=== PATIENT | female | born 1990 | race American Indian/Alaskan Native ===

== ENCOUNTER 2018-12-13 16:29 | Emergency (ER) | payer SELFPAY ==
[2018-12-13 17:01] VITALS: BP 93/65
--- NOTE | 2018-12-13 17:02 | Event Note ---
ED Screening Note Date of service: 12/13/18 Time: 16:59 ED Screening Note: This is a 28 y.o. F. that presents to the ER with diarrhea, fatigue, headache, and abdominal pain x 3 days. Current smoker LMP 12/05/2018 This initial assessment/diagnostic orders/clinical plan/treatment(s) is/are sub ject to change based on patients health status, clinical progression and re- assessment by fellow clinical providers in the ED. Further treatment and workup at subsequent clinical providers discretion. Patient/guardian urged not to elope from the ED as their condition may be serious if not clinically assessed and managed. Initial orders include: Labs
[2018-12-13 17:46] LABS: Bacteria,Urine 1+ /HPF (Negative); Bilirubin,Urine NEG (Negative); Blood,Urine MOD (Negative); Color,Urine Amber (Yellow); HCG Qualitative,Urine Negative (Negative); Hyaline Casts,Urine 47 /LPF; Mucus,Urine 3+ /HPF; Urobilinogen,Urine < 2.0 mg/dL (<2.0)
[2018-12-13 18:27] LABS: Basophils % (Auto) 0.3 % (0.0-1.8); Eosinophils % (Auto) 0.1 % (0.0-4.3); Hematocrit 44.8 % (30.3-42.9); Hemoglobin 14.5 gm/dl (10.1-14.3); Lymphocytes # (Auto) 1.4 K/mm3 (1.2-5.4); Lymphocytes % (Auto) 26.1 % (13.4-35.0); Mean Corpuscular HGB Conc 32 % (30-34); Mean Corpuscular Volume 81 fl (79-97); Monocytes # (Auto) 0.5 K/mm3 (0.0-0.8); Monocytes % (Auto) 9.8 % (0.0-7.3); Platelet Count 272 K/mm3 (140-440); Red Blood Count 5.51 M/mm3 (3.65-5.03); Red Cell Distribution Width 14.2 % (13.2-15.2)
[2018-12-13 18:49] LABS: Albumin 4.2 g/dL (3.9-5); Calcium 9.6 mg/dL (8.4-10.2)
[2018-12-13] MEDS ORDERED: NACL 0.9% 1000 ML 1,000 ML IV ONE (20:11)
[2018-12-13] MEDS ORDERED: ZOFRAN IV ONE (20:11)
--- NOTE | 2018-12-13 21:30 | Cat Scan Report ---
CT ABDOMEN AND PELVIS WITH CONTRAST HISTORY: abd pain. Acute generalized abdominal pain and diarrhea COMPARISON: None. TECHNIQUE: CT images of the abdomen and pelvis were obtained following administration of intravenous contrast. All CT scans at this location are performed using CT dose reduction for ALARA by means of automated exposure control. CONTRAST: 100 ml of intravenous contrast administered. FINDINGS: Lungs/bones: Lung bases are clear. There is no acute osseous abnormality or degenerative change. Abdomen/pelvis: The liver is enlarged with no focal mass identified. The gallbladder, spleen, pancre as, adrenals, kidneys, and proximal GI tract appear unremarkable. Urinary bladder is mostly collapsed. Uterus is mildly edematous with endometrial fluid and small ovar linsey follicles bilaterally. There is trace pelvic free fluid. There is a small fat-containing umbilica l hernia. There is abnormal circumferential wall thickening involving the majority of the colon with no bowel o bstruction or perforation identified. IMPRESSION: 1. Mild pancolitis. Signer Name: Lenard Laureano MD Signed: 12/13/2018 9:26 PM Workstation Name: [id number]
[2018-12-13] MEDS ORDERED: ROCEPHIN/NS 1 GM/50 ML 1 GM/50 ML BAG IV ONE (21:40)
--- NOTE | 2018-12-13 21:48 | Emergency Department Report ---
ED Abdominal Pain HPI - General Chief Complaint: Abdominal Pain Stated Complaint: FAINT/FEVER/ABD PAIN/NAUSEA Time Seen by Provider: 12/13/18 16:58 Source: patient Mode of arrival: Ambulatory Limitations: No Limitations - History of Present Illness Initial Comments: This is a 28 y.o. F. that presents to the ER with diarrhea, fatigue, headache, and abdominal pain x 3 days. pt is a 10 pack yr smoker, LMP: 12/05/2018 MD Complaint: abdominal pain Onset/Timin -: days(s) Location: LLQ, RLQ Radiation: LLQ, RLQ Migration to: LLQ, RLQ Severity: moderate Severity scale (0 -10): 5 Quality: cramping, aching Consistency: intermittent Improves With: nothing Worsens With: nothing Associated Symptoms: nausea, diarrhea. denies: constipation, dysuria, melena, hematuria - Related Data LMP Date: 12/05/18 Previous Rx's Medication Instructions Recorded Last Taken Type Dicyclomine [Bentyl] 10 mg PO QID PRN #40 capsule 12/13/18 Unknown Rx Fluconazole [Diflucan TAB] 150 mg PO ONCE #1 tablet 12/13/18 Unknown Rx Nitrofurantoin Brooks/M-Cryst 100 mg PO BID 7 Days #14 capsule 12/13/18 Unknown Rx [Macrobid CAP] Ondansetron [Zofran Odt] 4 mg PO Q8HR PRN #12 tab.rapdis 12/13/18 Unknown Rx predniSONE [Deltasone] 40 mg PO QDAY 5 Days #10 tab 12/13/18 Unknown Rx Allergies Allergy/AdvReac Type Severity Reaction Status Date / Time No Known Allergies Allergy Unverified 12/13/18 16:32 ED Review of Systems ROS: Stated complaint: FAINT/FEVER/ABD PAIN/NAUSEA Other details as noted in HPI Constitutional: denies: chills, fever Eyes: denies: eye pain, eye discharge, vision change ENT: denies: ear pain, throat pain Respiratory: denies: cough, shortness of breath, wheezing Cardiovascular: denies: chest pain, palpitations Endocrine: no symptoms reported Gastrointestinal: abdominal pain, nausea, diarrhea. denies: constipation, hematemesis, melena Genitourinary: denies: urgency, dysuria, discharge Musculoskeletal: denies: back pain, joint swelling, arthralgia Skin: denies: rash, lesions Neurological: headache. denies: weakness, numbness, paresthesias, confusion, abnormal gait, vertigo Psychiatric: denies: anxiety, depression Hematological/Lymphatic: denies: easy bleeding, easy bruising ED Past Medical Hx - Past Medical History Previous Medical History?: No - Surgical History Past Surgical History?: No - Social History Smoking Status: Current Every Day Smoker Substance Use Type: Alcohol - Medications Home Medications: Home Medications Medication Instructions Recorded Confirmed Last Taken Type Dicyclomine [Bentyl] 10 mg PO QID PRN #40 capsule 12/13/18 Unknown Rx Fluconazole [Diflucan TAB] 150 mg PO ONCE #1 tablet 12/13/18 Unknown Rx Nitrofurantoin Brooks/M-Cryst 100 mg PO BID 7 Days #14 capsule 12/13/18 Unknown Rx [Macrobid CAP] Ondansetron [Zofran Odt] 4 mg PO Q8HR PRN #12 tab.rapdis 12/13/18 Unknown Rx predniSONE [Deltasone] 40 mg PO QDAY 5 Days #10 tab 12/13/18 Unknown Rx ED Physical Exam - General Limitations: No Limitations General appearance: alert, in no apparent distress - Head Head exam: Present: atraumatic, normocephalic - Eye Eye exam: Present: normal appearance, PERRL, EOMI Pupils: Present: normal accommodation - ENT ENT exam: Present: normal orophraynx, mucous membranes moist - Neck Neck exam: Present: normal inspection. Absent: tenderness, lymphadenopathy - Respiratory Respiratory exam: Present: normal lung sounds bilaterally. Absent: respiratory distress, wheezes, stridor, chest wall tenderness - Cardiovascular Cardiovascular Exam: Present: normal rhythm, tachycardia, normal heart sounds. Absent: systolic murmur, diastolic murmur, rubs, gallop - GI/Abdominal GI/Abdominal exam: Present: soft, normal bowel sounds. Absent: distended, tenderness, guarding, rebound, rigid, bruit, hernia - Rectal Rectal exam: Present: deferred - Extremities Exam Extremities exam: Present: normal inspection, full ROM, normal capillary refill. Absent: tenderness, pedal edema - Back Exam Back exam: Present: normal inspection, full ROM. Absent: tenderness, CVA tenderness (R), CVA tenderness (L), muscle spasm, paraspinal tenderness, rash noted - Neurological Exam Neurological exam: Present: alert, oriented X3, CN II-XII intact, normal gait, reflexes normal. Absent: motor sensory deficit - Psychiatric Psychiatric exam: Present: normal affect, normal mood - Skin Skin exam: Present: warm, dry, intact, normal color. Absent: rash ED Course Vital Signs 12/13/18 16:59 Temperature 98.4 F Pulse Rate 125 H Respiratory 19 Rate Blood Pressure 93/65 [Left] O2 Sat by Pulse 99 Oximetry ED Medical Decision Making - Lab Data Result diagrams: 12/13/18 17:56 12/13/18 17:56 Labs 12/13/18 12/13/18 12/13/18 17:28 17:56 17:56 WBC 5.5 RBC 5.51 H Hgb 14.5 H Hct 44.8 H MCV 81 MCH 26 L MCHC 32 RDW 14.2 Plt Count 272 Lymph % (Auto) 26.1 Brooks % (Auto) 9.8 H Eos % (Auto) 0.1 Baso % (Auto) 0.3 Lymph # 1.4 Brooks # 0.5 Eos # 0.0 Baso # 0.0 Seg Neutrophils % 63.7 Seg Neutrophils # 3.5 Sodium 135 L Potassium 3.2 L Chloride 96.3 L Carbon Dioxide 25 Anion Gap 17 BUN 10 Creatinine 1.3 H Estimated GFR 48 BUN/Creatinine Ratio 8 Glucose 110 H Calcium 9.6 Total Bilirubin 0.40 AST 15 ALT 11 Alkaline Phosphatase 67 Total Protein 7.8 Albumin 4.2 Albumin/Globulin Ratio 1.2 Lipase 9 L HCG, Qual Urine Color Magdalena Urine Turbidity Cloudy Urine pH 5.0 Ur Specific Davy 1.035 H Urine Protein 100 mg/dl Urine Glucose (UA) Neg Urine Ketones Tr Urine Blood Mod Urine Nitrite Neg Urine Bilirubin Neg Urine Urobilinogen < 2.0 Ur Leukocyte Esterase Sm Urine WBC (Auto) 20.0 H Urine RBC (Auto) 6.0 U Epithel Cells (Auto) 20.0 H Urine Bacteria (Auto) 1+ Hyaline Casts 47 Urine Mucus 3+ Urine Yeast (Budding) 1+ Urine HCG, Qual Negative 12/13/18 17:56 WBC RBC Hgb Hct MCV MCH MCHC RDW Plt Count Lymph % (Auto) Brooks % (Auto) Eos % (Auto) Baso % (Auto) Lymph # Brooks # Eos # Baso # Seg Neutrophils % Seg Neutrophils # Sodium Potassium Chloride Carbon Dioxide Anion Gap BUN Creatinine Estimated GFR BUN/Creatinine Ratio Glucose Calcium Total Bilirubin AST ALT Alkaline Phosphatase Total Protein Albumin Albumin/Globulin Ratio Lipase HCG, Qual Negative Urine Color Urine Turbidity Urine pH Ur Specific Davy Urine Protein Urine Glucose (UA) Urine Ketones Urine Blood Urine Nitrite Urine Bilirubin Urine Urobilinogen Ur Leukocyte Esterase Urine WBC (Auto) Urine RBC (Auto) U Epithel Cells (Auto) Urine Bacteria (Auto) Hyaline Casts Urine Mucus Urine Yeast (Budding) Urine HCG, Qual - Radiology Data Radiology results: report reviewed, image reviewed Ordering Physician: KANA RIVERA NP Date of Service: 12/13/18 Procedure(s): CT abdomen pelvis w con Accession Number(s): [id number] cc: KANA RIVERA NP CT ABDOMEN AND PELVIS WITH CONTRAST HISTORY: abd pain. Acute generalized abdominal pain and diarrhea COMPARISON: None. TECHNIQUE: CT images of the abdomen and pelvis were obtained following administration of intravenous contrast. All CT scans at this location are performed using CT dose reduction for ALARA by means of automated exposure control. CONTRAST: 100 ml of intravenous contrast administered. FINDINGS: Lungs/bones: Lung bases are clear. There is no acute osseous abnormality or degenerative change. Abdomen/pelvis: The liver is enlarged with no focal mass identified. The gallbladder, spleen, pancreas, adrenals, kidneys, and proximal GI tract appear unremarkable. Urinary bladder is mostly collapsed. Uterus is mildly edematous with endometrial fluid and small ovarian follicles bilaterally. There is trace pelvic free fluid. There is a small fat-containing umbilical hernia. There is abnormal circumferential wall thickening involving the majority of the colon with no bowel obstruction or perforation identified. IMPRESSION: 1. Mild pancolitis. Signer Name: Lenard Laureano MD Signed: 12/13/2018 9:26 PM Workstation Name: [id number] Transcribed By: URIEL Dictated By: Lenard Laureano MD Electronically Authenticated By: Lenard Laureano MD Signed Date/Time: 12/13/182125 DD/ 20 TD/TT: - Medical Decision Making Symptoms PATIENT'S tolerating by mouth intake without nausea vomiting at this time last diarrhea episode since this a.m. last by mouth intake 20 minutes ago there is no fever no chills plan Zofran prednisone Follow up with GI, return to ED if symptoms worsen or unable to tolerate by mouth , patient verbalized agreement and understanding with discharge plan discharge home in stable condition at this time. Critical care attestation.: If time is entered above; I have spent that time in minutes in the direct care of this critically ill patient, excluding procedure time. ED Disposition Clinical Impression: Mild dehydration, Pancolitis Abdominal pain Qualifiers: Abdominal location: lower abdomen, unspecified Qualified Code(s): R10.30 - Lower abdominal pain, unspecified Disposition: TO HOME OR SELFCARE Is pt being admited?: No Does the pt Need Aspirin: No Condition: Stable Instructions: Abdominal Pain (ED), Irritable Bowel Syndrome (ED) Prescriptions: Dicyclomine [Bentyl] 10 mg PO QID PRN #40 capsule PRN Reason: abdominal spasm predniSONE [Deltasone] 40 mg PO QDAY 5 Days #10 tab Fluconazole [Diflucan TAB] 150 mg PO ONCE #1 tablet Nitrofurantoin Brooks/M-Cryst [Macrobid CAP] 100 mg PO BID 7 Days #14 capsule Ondansetron [Zofran Odt] 4 mg PO Q8HR PRN #12 tab.rapdis PRN Reason: nausea and vomiting Referrals: [facility] [Provider Group] - 3-5 Days [facility] [Outside] - 3-5 Days Forms: Work/School Release Form(ED) Time of Disposition: 21:57
== END 2018-12-13 23:15 | disposition home or self-care (01) ==
LOC: ED 16:29
DX: K51.00 Ulcerative (chronic) pancolitis without complications (principal); E86.0 Dehydration; F17.200 Nicotine dependence, unspecified, uncomplicated
CPT/HCPCS: 36415; 74177; 80053; 81001; 81025; 83690; 84703; 85025; 87086; J0696; J2405; J7030; Q9967; 96361; 96365; 96375